=== PATIENT | male | born 1995 | race African-American/Black ===

== ENCOUNTER 2016-08-22 11:16 | Emergency (ER) ==
[2016-08-22 11:27] VITALS: BP 135/75
--- NOTE | 2016-08-22 11:42 | PROVIDER DOCUMENTATION ---
[facility] General - General Chief Complaint: Flu Symptoms Stated Complaint: SORE THROAT Time Seen by Provider: 08/22/16 11:31 Source: patient Allergies/Adverse Reactions: Patient Allergies Allergy/AdvReac Type Severity Reaction Status Date / Time No Known Allergies Allergy Verified 05/15/14 13:38 Home Medications: Home Medication List Medication Instructions Recorded Confirmed Last Taken Type Amoxicillin [Amoxil] 500 mg PO BID #10 capsule 08/22/16 Unknown Rx Prednisone 20 mg PO DAILY #6 tablet 08/22/16 Unknown Rx - History of Present Illness[facility] General Nature of Presenting Problem: This pt presents today c complaints of sore throat, fever, chills, fatigue and a reported syncopal episode this AM. He states that he really just "felt kind of faint." I asked him if he had been eating and he said that all he had eaten in the past two days was some fruit. He states that he did eat a peanut butter sandwich later this morning and felt better. No n/v/d. no other issues or complaints. EENT Location: reports: throat, facial Quality of Pain: reports: aching Severity: reports: moderate Onset/Duration: reports: 3 days ago Timing: reports: still present Prearrival Treatment: Initiated no prearrival treatment Associated Symptoms: reports: facial pain/swelling, fever, nasal congestion/ drainage, sore throat Similar Symptoms Previously?: No Recently seen or treated by another doctor?: No Review of Systems - Adult - REVIEW OF SYSTEMS - ADULT Constitutional: reports: chills, fever, fatique. denies: night sweats, weight gain Eyes: reports: no symptoms reported. denies: discharge, dry eyes Ears, Nose, Mouth & Throat: reports: sinus problem, throat pain. denies: ear discharge, ear pain, nose pain, mouth/dental pain Cardiovascular: reports: no symptoms reported Respiratory: reports: no symptoms reported. denies: chronic cough, cough Gastrointestinal: reports: no symptoms reported. denies: abdominal pain, hematemesis Genitourinary: reports: no symptoms reported. denies: dysuria, discharge Musculoskeletal: reports: no symptoms reported. denies: bone pain, back pain Integumentary: reports: no symptoms reported. denies: hives, hair loss Neurological: reports: syncope (near). denies: ataxia, dizziness/vertigo Psychiatric: reports: no symptoms reported Endocrine: reports: no symptoms reported Hematologic/Lymphatic: reports: no symptoms reported Allergic/Immunologic: reports: no symptoms reported All Other Systems: Reviewed and Negative Past History - Adult - PAST MEDICAL HISTORY-ADULT Review of Records: reports: Old Records Reviewed, Nursing Assessment Review, Medications Reviewed, Social history reviewed & non-contributory. Major Childhood Illnesses: reports: denies history Cardiovascular: reports: denies history Respiratory: reports: denies history Gastrointestinal: reports: denies history Obstetrical/Gynecological: reports: denies history Genitourinary: reports: denies history Musculoskeletal: reports: denies history Neurological: reports: denies history Endocrine/Immune: reports: denies history Other Conditions: reports: denies history Physical Exam- EENT - Physical Exam EENT Initial Vital Signs Reviewed: Yes General Appearance: appears well, alert, no apparent distress Eye Exam: bilateral eye: normal inspection, PERRL, EOMI Ear Exam: right ear: erythema, TM red, left ear: canal normal, TM normal, bilateral ear: auricle normal Nasal Exam: normal inspection Throat Exam: normal mouth inspection, pharynx tenderness (erythema). negative: tonsillar exudate, tonsillar swelling Neck: non-tender, full range of motion, supple, normal inspection. negative: limited range of motion, lymphadenopathy, meningismus Respiratory: chest non-tender, lungs clear, normal breath sounds, no pleuratic chest pain, no respiratory distress, no accessory muscle use. negative: respiratory distress, decreased breath sounds, accessory muscle use Cardiovascular: normal peripheral pulses, regular rate, rhythm, no edema, no gallop, no JVD, no murmur. negative: bradycardia, tachycardia Abdominal Exam: normal bowel sounds, non tender, soft, no organomegaly, no pulsatile mass. negative: abdominal bruit, abnormal bowel sounds, distended Back Exam: normal inspection, no CVA tenderness, no vertebral tenderness Extremity: normal range of motion, non-tender, normal gait, normal inspection Integumentary: normal color, normal turgor, warm/dry Neurologic: grossly normal, no motor/sensory deficits Psych/Mental Status: normal mood/affect, normal thought content, normal thought process, oriented x 3 Progress - PLAN OF CARE/RESULTS Progress/Plan/Lab Results: Vital Signs Temp Pulse Resp BP Pulse Ox 08/22/16 11:24 99.0 F 97 H 20 135/75 98 No Known Allergies Allergy (Verified 08/22/16 11:40) Cyclobenzaprine [Flexeril] 10 mg PO TID PRN #12 tablet 05/15/14 Ibuprofen [Motrin] 800 mg PO Q8H PRN PRN #12 tablet 05/15/14 Departure - Departure Time of Disposition Order: 11:41 DIAGNOSIS: Otitis media Qualifiers: Otitis media type: in diseases classified elsewhere Laterality: right Qualified Code(s): H67.1 - Otitis media in diseases classified elsewhere, right ear Disposition: HOME 01 Certified Medical Emergency: Urgent Condition: Good Additional Instructions: Take medication as prescribed. Alternate tylenol and motrin for fever and pain. Rest and stay well hydrated. Eat a good diet. Follow up with your primary care provider. ED Follow Up Instructions: You have been treated by a care provider in the Emergency Department. These instructions are being provided to you so you can have an understanding of how to care for yourself upon discharge. Upon discharge from the Emergency Department, you are responsible for making arrangements for follow-up care by a physician of your choice. Take all prescribed medications as directed. Return to the Emergency Department immediately for any new or worsening symptoms. You may call the Physician Referral phone number at [phone] to obtain a list of Physicians who are taking new patients. Prescriptions: Amoxicillin [Amoxil] 500 mg PO BID #10 capsule Prednisone 20 mg PO DAILY #6 tablet Attestation - Physician/ NATHANIEL Attestation Patient care was provided by Advanced Practice Provider:: Yes Advanced Practice Provider:: Sergio Baldwin Advanced Practice Provider documentation review:: The Mid-level provider documentation, treatment plan and medical decision making was reviewed by the physician who agrees with all treatment and medical decision making by the MLP.
--- NOTE | 2016-08-23 09:23 | EKG Report ---
Test Performed on : 08/22/2016 11:29:43 AM Test Reason : syncope Blood Pressure : / mmHG Vent. Rate : 081 BPM Atrial Rate : 081 BPM P-R Int : 158 ms QRS Dur : 096 ms QT Int : 356 ms P-R-T Axes : 053 117 029 degrees QTc Int : 413 ms Normal sinus rhythm. Right axis deviation Abnormal ECG No previous ECGs available Unconfirmed Result
== END 2016-08-22 11:50 | disposition home or self-care (01) ==
LOC: ED 11:16
DX: H66.91 Otitis media, unspecified, right ear (principal); J02.9 Acute pharyngitis, unspecified; R50.9 Fever, unspecified; R53.83 Other fatigue; R55 Syncope and collapse; R09.81 Nasal congestion
CPT/HCPCS: 93005; 99282